=== PATIENT | male | born 1995 | race Caucasian/White ===

== ENCOUNTER 2017-08-23 17:29 | Emergency (ER) | payer MEDICAID ==
[~2017-08-23] VITALS: Ht 188 cm; Wt 80.0 kg
[2017-08-23 17:38] VITALS: BP 131/84
[2017-08-23] MEDS ORDERED: KETOROLAC 30 MG/1 ML ONE (19:00)
[2017-08-23] MEDS ORDERED: AZITHROMYCIN 500 MG TABLET PO ONE (19:00)
[2017-08-23] MEDS ORDERED: CEFTRIAXONE 1,000 MG ONE (19:00)
[2017-08-23] MEDS ORDERED: KETOROLAC 60 MG/2 ML IM ONE (19:00)
[2017-08-23] MEDS ORDERED: AZITHROMYCIN 250 MG TABLET ONE (19:00)
[2017-08-23] MEDS ORDERED: CEFTRIAXONE 250 MG IM ONE (19:00)
== END 2017-08-23 19:58 | disposition home or self-care (01) ==
LOC: ED 19:32
DX: N45.3 Epididymo-orchitis (principal)
CPT/HCPCS: 76870; 81001; 87086; 87491; 87591; 96372; 99285; J0696; J1885